=== PATIENT | male | born 1975 | race Caucasian/White ===

== ENCOUNTER 2017-07-14 13:32 | Emergency (ER) | payer BC ==
[2017-07-14] MEDS ORDERED: Adacel (T-DAP) 0.5 ML VIAL ONE (14:12)
== END 2017-07-14 14:27 | disposition home or self-care (01) ==
LOC: ERS 13:32
DX: S61.451A Open bite of right hand, initial encounter (principal); J45.909 Unspecified asthma, uncomplicated; F17.210 Nicotine dependence, cigarettes, uncomplicated; Z79.899 Other long term (current) drug therapy; W54.0XXA Bitten by dog, initial encounter
CPT/HCPCS: 90471; 90715